=== PATIENT | male | born 1980 ===

== ENCOUNTER 2016-09-07 20:35 | Emergency (ER) | payer OTHER ==
[2016-09-07 21:49] LABS: Basophils % (Auto) 0.3 % (0.0-1.8); Eosinophils % (Auto) 0.2 % (0.0-4.3); Hematocrit 44.7 % (35.5-45.6); Hemoglobin 15.3 gm/dl (11.8-15.2); Mean Corpuscular HGB Conc 34 % (32-34); Mean Corpuscular Hemoglobin 29 pg (28-32); Mean Corpuscular Volume 86 fl (84-94); Platelet Count 296 K/mm3 (140-440); Red Blood Count 5.23 M/mm3 (3.65-5.03); Red Cell Distribution Width 12.3 % (13.2-15.2); White Blood Count 12.2 K/mm3 (4.5-11.0)
[2016-09-07 22:03] LABS: Alanine Aminotransferase 34 units/L (7-56); Albumin 4.2 g/dL (3.9-5); Albumin/Globulin Ratio 1.4 %; Alkaline Phosphatase 40 units/L (35-129); Anion Gap 16 mmol/L; BUN/Creatinine Ratio 9.09; Blood Urea Nitrogen 10 mg/dL (9-20); Calcium 8.9 mg/dL (8.4-10.2); Carbon Dioxide 28 mmol/L (22-30); Chloride 97.8 mmol/L (98-107); Glucose 108 mg/dL (75-100); Lipase 18 units/L (13-60); Potassium 4.1 mmol/L (3.6-5.0); Sodium 138 mmol/L (137-145); Total Protein 7.3 g/dL (6.3-8.2)
[2016-09-07 23:03] LABS: Bilirubin,Urine NEG (Negative); Blood,Urine SM (Negative); Ketones,Urine NEG (Negative); Leukocyte Esterase,Urine TR (Negative); Mucus,Urine FEW /HPF; Nitrite,Urine NEG (Negative); Protein,Urine <15 mg/dL mg/dL (Negative); Urobilinogen,Urine < 2.0 mg/dL (<2.0)
[2016-09-08] MEDS ORDERED: NACL 0.9% 1000 ML 1,000 ML IV ONE (03:35)
[2016-09-08] MEDS ORDERED: ZOFRAN IV ONE (03:35)
[2016-09-08] MEDS ORDERED: SUBLIMAZE IV ONE (03:35)
--- NOTE | 2016-09-08 03:57 | Emergency Department Report ---
HPI - General Chief Complaint: Abdominal Pain Time Seen by Provider: 09/08/16 03:29 - HPI HPI: Room 4 The patient is a 35-year-old male presenting with a chief complaint of abdominal pain. The patient states his symptoms began 2 nights ago with epigastric pain radiating to the periumbilical region. Patient describes pain as sharp and constant in nature. The following day the patient developed nausea vomiting and diarrhea associated with back pain. Patient denies dysuria or hematuria. Patient denies any sick contacts. Patient does admit to subjective fever. The patient currently gives his pain a score of 20/10. The patient states his pain increases with meals Location: Abdomen Duration: 3 days Quality: Sharp Severity:20/10 Modifying factors: [see above] Context: [see above] Mode of transportation: [not driving] ED Past Medical Hx - Past Medical History Previous Medical History?: Yes Hx GERD: Yes - Surgical History Past Surgical History?: No - Family History Family history: no significant - Social History Smoking Status: Never Smoker Substance Use Type: None - Medications Home Medications: Home Medications Medication Instructions Recorded Confirmed Last Taken Type Acetaminophen/Codeine [Tylenol #3] 1 tab PO Q6H PRN #12 tab 03/17/15 Unknown Rx Cephalexin [Keflex] 500 mg PO Q8HR #15 cap 03/17/15 Unknown Rx Omeprazole [PriLOSEC] 40 mg PO QDAY 03/17/15 03/17/15 03/17/15 08:00 History Diphenoxylate/Atropine [Lomotil] 1 tab PO QID PRN #10 tablet 09/08/16 Unknown Rx Famotidine [Pepcid] 20 mg PO BID #30 tablet 09/08/16 Unknown Rx HYDROcodone/APAP 5-325 [[place] 1 - 2 each PO Q6HR PRN #14 tablet 09/08/16 Unknown Rx 5/325] Promethazine [Phenergan TAB] 25 mg PO Q6HR PRN #20 tab 09/08/16 Unknown Rx Promethazine [Phenergan] 25 mg [place] Q6HR PRN #5 supp.rect 09/08/16 Unknown Rx ED Review of Systems ROS: Stated complaint: N/V/D Other details as noted in HPI Comment: All other systems reviewed and negative Constitutional: fever (subjective) Eyes: denies: eye pain, eye discharge, vision change ENT: denies: ear pain, throat pain Respiratory: denies: cough, shortness of breath, wheezing Cardiovascular: denies: chest pain, palpitations Endocrine: no symptoms reported Gastrointestinal: abdominal pain, nausea, vomiting, diarrhea Genitourinary: denies: urgency, dysuria, hematuria Musculoskeletal: back pain Skin: denies: rash, lesions Neurological: denies: headache, weakness, paresthesias Psychiatric: denies: anxiety, depression Hematological/Lymphatic: denies: easy bleeding, easy bruising Physical Exam - Physical Exam Vital Signs: Vital Signs 09/07/16 09/08/16 21:22 03:28 Temperature 100.6 F H 99.6 F Pulse Rate 87 79 Respiratory 17 16 Rate Blood Pressure 151/100 Blood Pressure 151/100 139/83 [Left] O2 Sat by Pulse 99 98 Oximetry Physical Exam: GENERAL: The patient is well-developed well-nourished male lying on stretcher. Be in mild discomfort. [] HEENT: Normocephalic. Atraumatic. Extraocular motions are intact. Patient has moist mucous membranes. NECK: Supple. Trachea midline CHEST/LUNGS: Clear to auscultation. There is no respiratory distress noted. HEART/CARDIOVASCULAR: Regular. There is no tachycardia. There is no gallop rub or murmur. ABDOMEN: Abdomen is soft, with tenderness to palpation in the right lower quadrant, right upper quadrant, epigastric and left upper quadrant. Patient has normal bowel sounds. There is no abdominal distention. SKIN: There is no rash. There is no edema. There is no diaphoresis. NEURO: The patient is awake, alert, and oriented. The patient is cooperative. The patient has normal speech MUSCULOSKELETAL: There is no evidence of acute injury. ED Course Vital Signs 09/07/16 09/08/16 21:22 03:28 Temperature 100.6 F H 99.6 F Pulse Rate 87 79 Respiratory 17 16 Rate Blood Pressure 151/100 Blood Pressure 151/100 139/83 [Left] O2 Sat by Pulse 99 98 Oximetry ED Medical Decision Making - Lab Data Result diagrams: 09/07/16 21:32 09/07/16 21:32 Laboratory Tests 09/07/16 09/07/16 09/07/16 21:32 21:32 22:30 WBC 12.2 H RBC 5.23 H Hgb 15.3 H Hct 44.7 MCV 86 MCH 29 MCHC 34 RDW 12.3 L Plt Count 296 Lymph % (Auto) 11.9 L [place] % (Auto) 10.5 H Eos % (Auto) 0.2 Baso % (Auto) 0.3 Lymph # 1.4 [place] # 1.3 H Eos # 0.0 Baso # 0.0 Seg Neutrophils % 77.1 H Seg Neutrophils # 9.4 H Sodium 138 Potassium 4.1 Chloride 97.8 L Carbon Dioxide 28 Anion Gap 16 BUN 10 Creatinine 1.1 Estimated GFR > 60 BUN/Creatinine Ratio 9.09 Glucose 108 H Calcium 8.9 Total Bilirubin 0.40 AST 25 ALT 34 Alkaline Phosphatase 40 Total Protein 7.3 Albumin 4.2 Albumin/Globulin Ratio 1.4 Lipase 18 Urine Color Yellow Urine Turbidity Clear Urine pH 6.0 Ur Specific [place] 1.013 Urine Protein <15 mg/dl Urine Glucose (UA) Neg Urine Ketones Neg Urine Blood Sm Urine Nitrite Neg Urine Bilirubin Neg Urine Urobilinogen < 2.0 Ur Leukocyte Esterase Tr Urine WBC (Auto) 6.0 Urine RBC (Auto) 2.0 Urine Mucus Few - Radiology Data Radiology results: report reviewed (CT abdomen and pelvis), image reviewed (CT abdomen and pelvis) CT abdomen and pelvis (read by radiologist)-no intestinal obstruction or free air. Normal CT appearance of the appendix. Normal CT appearance of the gallbladder. 2.1 cm bilobed left renal cyst. - Differential Diagnosis appendicitis, pancreatitis, cholelithiasis, peptic ulcer disease, gastroent Critical care attestation.: If time is entered above; I have spent that time in minutes in the direct care of this critically ill patient, excluding procedure time. ED Disposition Clinical Impression: Acute abdominal pain, Nausea vomiting and diarrhea, Fever, Acute gastroenteritis Disposition: DC-01 TO HOME OR SELFCARE Is pt being admited?: No Does the pt Need Aspirin: No Condition: Stable Instructions: Acute Nausea and Vomiting (ED), Abdominal Pain (ED) Additional Instructions: Return to the emergency department immediately should you develop worsening symptoms, fever, inability to tolerate food or liquid or any other concerns. Prescriptions: Diphenoxylate/Atropine [Lomotil] 1 tab PO QID PRN #10 tablet PRN Reason: Diarrhea Famotidine [Pepcid] 20 mg PO BID #30 tablet HYDROcodone/APAP 5-325 [[place] 5/325] 1 - 2 each PO Q6HR PRN #14 tablet PRN Reason: Pain Promethazine [Phenergan TAB] 25 mg PO Q6HR PRN #20 tab PRN Reason: Nausea Promethazine [Phenergan] 25 mg [place] Q6HR PRN #5 supp.rect PRN Reason: Vomiting Referrals: DENNISE CARROLL JR, MD [Staff Physician] - 3-5 Days (Dr. Carroll is a primary physician. Please follow up with him to be established as a patient) JOSE A ELIZALDE MD [Staff Physician] - 3-5 Days (Dr. Elizalde is a ironing pleater. Please follow up with him for further evaluation) Time of Disposition: 05:48
[2016-09-08] MEDS ORDERED: TYLENOL PO ONE (04:04)
[2016-09-08] MEDS ORDERED: NACL ONE (04:14)
--- NOTE | 2016-09-08 05:39 | Cat Scan Report ---
FINAL REPORT EXAM: CT ABDOMEN PELVIS W CONTRAST. HISTORY: Epigastric, RUQ, RLQ abdominal pain. TECHNIQUE: Axial CT images of the abdomen and pelvis were obtained, following the administration of intravenous contrast only. Delayed axial images and coronal and sagittal reformatted images were also obtained. No prior studies are available for comparison. FINDINGS: The images near the diaphragm are degraded due to respiratory motion artifact. The liver, biliary tree, gallbladder, pancreas, spleen, adrenal glands, and right kidney are unremarkable. There is a 2.1 cm bilobed cyst in the left lower renal pole. Evaluation of bowel is limited due to lack of oral contrast. The distal stomach is contracted, not well evaluated. There is residual stool in the colon. There is no intestinal obstruction or free air. The appendix is air-filled, normal in appearance. The abdominal aorta is normal in caliber. Multiple shotty subcentimeter central mesenteric and retroperitoneal lymph nodes are seen, which do not meet size criteria for pathologic enlargement. There is no free or loculated fluid collection. The prostate gland is normal in size. The urinary bladder is unremarkable. No discrete osseous abnormality is seen. There are dependent changes at both posterior lung bases, left greater than right. IMPRESSION: 1. No intestinal obstruction or free air. Normal CT appearance of the appendix. 2. Normal CT appearance of the gallbladder. 3. 2.1 cm bilobed left renal cyst.
[2016-09-08 06:02] VITALS: BP 114/62
== END 2016-09-08 06:01 | disposition home or self-care (01) ==
LOC: ED 20:35
DX: K52.9 Noninfective gastroenteritis and colitis, unspecified (principal); R11.2 Nausea with vomiting, unspecified; R19.7 Diarrhea, unspecified; R10.33 Periumbilical pain; K21.9 Gastro-esophageal reflux disease without esophagitis
CPT/HCPCS: 36415; 74177; 80053; 81001; 83690; 85025; 96361; 96374; 96375; 99284; J2405; J3010; J7030; Q9967